=== PATIENT | male | born 1990 | race Hispanic/Latino ===

== ENCOUNTER 2018-08-16 13:10 | Emergency (ER) | payer BC ==
--- NOTE | 2018-08-16 16:36 | ER ---
Nurse's Notes [facility] Name: Caleb Flower Age: 27 yrs Sex: Male : 1990 Arrival Date: 08/16/2018 Time: 13:14 Bed 9 Private MD: Tonny Andrade Diagnosis: Pain in right shoulder Presentation: 08/16 13:27 Presenting complaint: Patient states: Reports right shoulder and back pain for 1.5 aj weeks after moving [facility]. Saw PCP for this issue last week and was given RX, reports constipation from pain medication. Transition of care: patient was not received from another setting of care. Onset of symptoms was August 08, 2018. Risk Assessment: Do you want to hurt yourself or someone else? Patient reports no desire to harm self or others. Initial Sepsis Screen: Does the patient meet any 2 criteria? No. Patient's initial sepsis screen is negative. Does the patient have a suspected source of infection? No. Patient's initial sepsis screen is negative. Care prior to arrival: None. 13:27 Method Of Arrival: Ambulatory 13:27 Acuity: GITA 4 aj Triage Assessment: 13:30 General: Appears in no apparent distress. comfortable, Behavior is calm, cooperative, aj appropriate for age. Pain: Complains of pain in right trapezius, right scapular area, right supraclavicular area, right clavicle and anterior aspect of right shoulder. Neuro: Level of Consciousness is awake, alert, obeys commands, Oriented to person, place, time, situation, Appropriate for age. Respiratory: Airway is patent Respiratory effort is even, unlabored, Respiratory pattern is regular, symmetrical. Derm: Skin is intact, is healthy with good turgor, Skin is pink, warm \T\ dry. normal. Musculoskeletal: Circulation, motion, and sensation intact. Range of motion: intact in all extremities, Swelling absent. Historical: - Allergies: 13:30 PENICILLINS; aj - Home Meds: 13:30 Baclofen Oral [Active]; diclofenac oral oral [Active]; methylprednisolone 4 mg Oral tab aj 1 tab once daily [Active]; - PMHx: 13:30 None; aj - PSHx: 13:30 None; aj - Immunization history:: Adult Immunizations up to date. - Social history:: Smoking status: Patient uses tobacco products, smokes one-half pack cigarettes per day. - Ebola Screening: : Patient negative for fever greater than or equal to 101.5 degrees Fahrenheit, and additional compatible Ebola Virus Disease symptoms Patient denies exposure to infectious person Patient denies travel to an Ebola-affected area in the 21 days before illness onset No symptoms or risks identified at this time. Screenin:45 Abuse screen: Denies threats or abuse. Denies injuries from another. Nutritional dm5 screening: No deficits noted. Tuberculosis screening: No symptoms or risk factors identified. Fall Risk None identified. Assessment: 14:45 Reassessment: Patient appears in no apparent distress at this time. No changes from dm5 previously documented assessment. Patient and/or family updated on plan of care and expected duration. Pain level reassessed. Patient is alert, oriented x 3, equal unlabored respirations, skin warm/dry/pink. General: Appears in no apparent distress. comfortable, Behavior is calm, cooperative. Pain: Complains of pain in right supraclavicular area, right shoulder Pain currently is 5 out of 10 on a pain scale. Pain began suddenly. Neuro: Level of Consciousness is awake, alert, obeys commands, Oriented to person, place, time. Respiratory: Airway is patent Respiratory effort is even, unlabored, Respiratory pattern is regular. GI: No deficits noted. : No deficits noted. EENT: No deficits noted. Derm: No deficits noted. Musculoskeletal: Reports pain in right shoulder. Vital Signs: 13:30 BP 116 / 80; Pulse 69; Resp 19; Temp 97.8; Pulse Ox 99% on R/A; Weight 120.2 kg; Height aj 5 ft. 8 in. (172.72 cm); 14:45 BP 120 / 80; Pulse 72; Resp 20; Temp 98.2; Pulse Ox 99% on R/A; dm5 13:30 Body Mass Index 40.29 (120.20 kg, 172.72 cm) aj ED Course: 13:14 Patient arrived in ED. mr 13:15 Tonny Andrade MD is Private Physician. mr 13:29 Triage completed. aj 13:30 Arm band placed on right wrist. Patient placed in waiting room. aj 14:31 Ramón Khan NP is PHCP. pm1 14:31 Amandeep Christy MD is Attending Physician. pm1 14:45 Patient has correct armband on for positive identification. dm5 14:45 No provider procedures requiring assistance completed. Patient did not have IV access dm5 during this emergency room visit. 14:59 Merline Ferreira, RN is Primary Nurse. dm5 15:58 Tonny Andrade MD is Referral Physician. pm1 15:58 Neal Lewis MD is Referral Physician. pm1 Administered Medications: No medications were administered Outcome: 16:00 Discharge ordered by MD. pm1 16:25 Patient left the ED. aj Signatures: Merline Ferreira, RN RN Judy Gardiner RN RN aj Rivera, Mary mr Marinas, Patrick, STRATEGIC PARTNERSHIP SPECIALIST STRATEGIC PARTNERSHIP SPECIALIST pm1
--- NOTE | 2018-08-16 16:36 | EDPHYS ---
Physician Documentation [facility] Name: Caleb Flower Age: 27 yrs Sex: Male : 1990 Arrival Date: 08/16/2018 Time: 13:14 Bed 9 Private MD: Tonny Andrade ED Physician Amandeep Christy HPI: 08/16 15:30 This 27 yrs old Male presents to ER via Ambulatory with complaints of Right pm1 Shoulder Pain. 16:34 The patient or guardian complains of pain, that is acute. right shoulder. Context: The pm1 problem was sustained outdoors, resulted from lifting or carrying, a heavy object, grill, The patient reports no decreased range of motion. The patient reports no obvious deformity. Onset: The symptoms/episode began/occurred 2 week(s) ago. Modifying factors: the symptoms are alleviated by nothing. The symptoms are aggravated by movement. Associated signs and symptoms: Pertinent negatives: chest pain, neck pain, Numbness in right arm tingling, Weakness in right arm. Severity of symptoms: in the emergency department the symptoms are unchanged, despite medications prescribed by PCP 4 days ago. prescribed Medrol dose Mike, baclofen, and diclofenac . The patient has experienced similar episodes in the past, a few times. The patient has been recently seen by a physician: the patient's primary care provider, 4 day(s) ago. Patient with right shoulder injury 1 year ago. Patient was lifting a grill and hurt his right shoulder. Patient is able to move his right arm and shoulder the full range of motion. Historical: - Allergies: 13:30 PENICILLINS; aj - Home Meds: 13:30 Baclofen Oral [Active]; diclofenac oral oral [Active]; methylprednisolone 4 mg Oral tab aj 1 tab once daily [Active]; - PMHx: 13:30 None; aj - PSHx: 13:30 None; aj - Immunization history:: Adult Immunizations up to date. - Social history:: Smoking status: Patient uses tobacco products, smokes one-half pack cigarettes per day. - Ebola Screening: : Patient negative for fever greater than or equal to 101.5 degrees Fahrenheit, and additional compatible Ebola Virus Disease symptoms Patient denies exposure to infectious person Patient denies travel to an Ebola-affected area in the 21 days before illness onset No symptoms or risks identified at this time. ROS: 16:34 Constitutional: Negative for fever, chills, and weight loss, Eyes: Negative for injury, pm1 pain, redness, and discharge, ENT: Negative for injury, pain, and discharge, Neck: Negative for injury, pain, and swelling, Cardiovascular: Negative for chest pain, palpitations, and edema, Respiratory: Negative for shortness of breath, cough, wheezing, and pleuritic chest pain, Abdomen/GI: Negative for abdominal pain, nausea, vomiting, diarrhea, and constipation, Back: Negative for injury and pain, : Negative for injury, bleeding, discharge, and swelling. 16:34 Skin: Negative for injury, rash, and discoloration, Neuro: Negative for headache, weakness, numbness, tingling, and seizure. 16:34 MS/extremity: Positive for pain, of the anterior aspect of right shoulder. Exam: 16:34 Constitutional: This is a well developed, well nourished patient who is awake, alert, pm1 and in no acute distress. Head/Face: Normocephalic, atraumatic. Eyes: Pupils equal round and reactive to light, extra-ocular motions intact. Lids and lashes normal. Conjunctiva and sclera are non-icteric and not injected. Cornea within normal limits. Periorbital areas with no swelling, redness, or edema. ENT: Nares patent. No nasal discharge, no septal abnormalities noted. Tympanic membranes are normal and external auditory canals are clear. Oropharynx with no redness, swelling, or masses, exudates, or evidence of obstruction, uvula midline. Mucous membranes moist. Neck: Trachea midline, no thyromegaly or masses palpated, and no cervical lymphadenopathy. Supple, full range of motion without nuchal rigidity, or vertebral point tenderness. No Meningismus. Chest/axilla: Normal chest wall appearance and motion. Nontender with no deformity. No lesions are appreciated. Cardiovascular: Regular rate and rhythm with a normal S1 and S2. No gallops, murmurs, or rubs. Normal PMI, no JVD. No pulse deficits. Respiratory: Lungs have equal breath sounds bilaterally, clear to auscultation and percussion. No rales, rhonchi or wheezes noted. No increased work of breathing, no retractions or nasal flaring. Abdomen/GI: Soft, non-tender, with normal bowel sounds. No distension or tympany. No guarding or rebound. No evidence of tenderness throughout. Back: No spinal tenderness. No costovertebral tenderness. Full range of motion. Skin: Warm, dry with normal turgor. Normal color with no rashes, no lesions, and no evidence of cellulitis. 16:34 Musculoskeletal/extremity: Extremities: grossly normal except: noted in the anterior aspect of right shoulder - supraspinatus insertion point tenderness: ROM: full active range of motion, in the right shoulder, full passive range of motion, in the right shoulder, Circulation is intact in all extremities. Sensation intact. 16:34 Neuro: Orientation: is normal, Motor: is normal, moves all fours, strength is normal, strength is 5/5 in all extremities. Vital Signs: 13:30 BP 116 / 80; Pulse 69; Resp 19; Temp 97.8; Pulse Ox 99% on R/A; Weight 120.2 kg; Height aj 5 ft. 8 in. (172.72 cm); 14:45 BP 120 / 80; Pulse 72; Resp 20; Temp 98.2; Pulse Ox 99% on R/A; dm5 13:30 Body Mass Index 40.29 (120.20 kg, 172.72 cm) aj MDM: 14:42 Patient medically screened. sahil 15:57 Data reviewed: vital signs. Data interpreted: Pulse oximetry: on room air is 99 %. pm1 Interpretation: normal. Counseling: I had a detailed discussion with the patient and/or guardian regarding: the historical points, exam findings, and any diagnostic results supporting the discharge/admit diagnosis, the need for outpatient follow up, for definitive care, a orthopedic surgeon, to return to the emergency department if symptoms worsen or persist or if there are any questions or concerns that arise at home. Administered Medications: No medications were administered Disposition: 08/16/18 16:00 Discharged to Home. Impression: Pain in right shoulder. - Condition is Stable. - Discharge Instructions: Shoulder Pain. - Prescriptions for Tylenol- Codeine #3 300-30 mg Oral Tablet - take 2 tablets by ORAL route every 6 hours As needed; 20 tablet. Cyclobenzaprine 10 mg Oral Tablet - take 1 tablet by ORAL route every 8 hours As needed; 30 tablet. - Work release form, Medication Reconciliation Form, Thank You Letter, Antibiotic Education, Prescription Opioid Use form. - Follow up: Emergency Department; When: As needed; Reason: Worsening of condition. Follow up: Tonny Andrade MD; When: 2 - 3 days; Reason: Recheck today's complaints, Continuance of care, Re-evaluation by your physician. Follow up: Neal Lewis MD; When: 2 - 3 days; Reason: Recheck today's complaints, Continuance of care, Re-evaluation by your physician. - Problem is new. - Symptoms have improved. Addendum: 08/19/2018 06:48 Co-signature as Attending Physician, Amandeep Christy MD I agree with the assessment and c caldwell plan of care. Signatures: Dispatcher [employer] EDMS Judy Good, RN Amandeep Escalante MD MD cha Marinas, Patrick, [employer] INFANT CHILDCARE PROVIDER pm1 Corrections: (The following items were deleted from the chart) 08/16 16:25 16:00 08/16/2018 16:00 Discharged to Home. Impression: Pain in right shoulder. aj Condition is Stable. Forms are Medication Reconciliation Form, Thank You Letter, Antibiotic Education, Prescription Opioid Use. Follow up: Emergency Department; When: As needed; Reason: Worsening of condition. Follow up: Tonny Andrade; When: 2 - 3 days; Reason: Recheck today's complaints, Continuance of care, Re-evaluation by your physician. Follow up: Neal Lewis; When: 2 - 3 days; Reason: Recheck today's complaints, Continuance of care, Re-evaluation by your physician. Problem is new. Symptoms have improved. pm1
== END 2018-08-16 16:25 | disposition home or self-care (01) ==
LOC: ER 13:10
DX: M25.511 Pain in right shoulder (principal); F17.210 Nicotine dependence, cigarettes, uncomplicated; Z88.0 Allergy status to penicillin
CPT/HCPCS: 99281

== ENCOUNTER 2018-10-20 13:59 | Emergency (ER) | payer BC ==
[2018-10-20] MEDS ORDERED: CYCLOBENZAPRINE 10 MG TAB ONE (15:16)
--- NOTE | 2018-10-20 16:02 | EDPHYS ---
Physician Documentation [facility] Name: Caleb Flower Age: 28 yrs Sex: Male : 1990 Arrival Date: 10/20/2018 Time: 14:03 Bed 20 Private MD: Tonny Andrade ED Physician Manjeet Zhong HPI: 10/20 15:21 This 28 yrs old Male presents to ER via Ambulatory with complaints of Flu kb Symptoms. 15:20 Modifying factors: The symptoms are alleviated by nothing, the symptoms are aggravated kb by nothing. Associated signs and symptoms: Pertinent positives: fever, rhinorrhea, sore throat, Pertinent negatives: chest pain, diarrhea, ear ache, nausea, vomiting. The patient has not experienced similar symptoms in the past. The patient has not recently seen a physician. 15:21 The patient or guardian reports cough, that is intermittent, described as moderate, flu kb symptoms. Onset: The symptoms/episode began/occurred 4 day(s) ago. Severity of symptoms: At their worst the symptoms were mild, moderate, in the emergency department the symptoms are unchanged. Historical: - Allergies: 14:12 PENICILLINS; aj1 - Home Meds: 14:12 None [Active]; aj1 - PMHx: 14:12 chronic back issues; aj1 - Immunization history:: Flu vaccine is not up to date. - Social history:: Smoking status: Patient uses tobacco products, smokes one-half pack cigarettes per day. - Ebola Screening: : Patient denies travel to an Ebola-affected area in the 21 days before illness onset. ROS: 15:18 Cardiovascular: Negative for chest pain, palpitations, and edema, Abdomen/GI: Negative kb for abdominal pain, nausea, vomiting, diarrhea, and constipation, MS/Extremity: Negative for injury and deformity, Skin: Negative for injury, rash, and discoloration. 15:18 Constitutional: Positive for body aches, chills, fatigue, fever, malaise, Negative for poor PO intake, weight loss. 15:18 ENT: Positive for rhinorrhea, sinus congestion. 15:18 Respiratory: Positive for cough, Negative for dyspnea on exertion, hemoptysis, orthopnea, pleurisy, shortness of breath, wheezing. 15:18 Back: Positive for pain at rest, pain with movement, of the low back area. Exam: 15:18 Constitutional: This is a well developed, well nourished patient who is awake, alert, kb and in no acute distress. Head/Face: Normocephalic, atraumatic. ENT: Nares patent. No nasal discharge, no septal abnormalities noted. Tympanic membranes are normal and external auditory canals are clear. Oropharynx with no redness, swelling, or masses, exudates, or evidence of obstruction, uvula midline. Mucous membranes moist. Neck: Trachea midline, no thyromegaly or masses palpated, and no cervical lymphadenopathy. Supple, full range of motion without nuchal rigidity, or vertebral point tenderness. No Meningismus. Chest/axilla: Normal chest wall appearance and motion. Nontender with no deformity. No lesions are appreciated. Cardiovascular: Regular rate and rhythm with a normal S1 and S2. No gallops, murmurs, or rubs. Normal PMI, no JVD. No pulse deficits. Respiratory: Lungs have equal breath sounds bilaterally, clear to auscultation and percussion. No rales, rhonchi or wheezes noted. No increased work of breathing, no retractions or nasal flaring. Abdomen/GI: Soft, non-tender, with normal bowel sounds. No distension or tympany. No guarding or rebound. No evidence of tenderness throughout. Back: No spinal tenderness. No costovertebral tenderness. Full range of motion. Skin: Warm, dry with normal turgor. Normal color with no rashes, no lesions, and no evidence of cellulitis. MS/ Extremity: Pulses equal, no cyanosis. Neurovascular intact. Full, normal range of motion. Neuro: Awake and alert, GCS 15, oriented to person, place, time, and situation. Cranial nerves II-XII grossly intact. Motor strength 5/5 in all extremities. Sensory grossly intact. Cerebellar exam normal. Normal gait. Vital Signs: 14:12 BP 142 / 89; Pulse 91; Resp 18; Temp 98.3; Pulse Ox 97% on R/A; Weight 117.93 kg (R); aj1 Height 5 ft. 8 in. (172.72 cm) (R); Pain 5/10; 15:55 BP 138 / 84; Pulse 87; Resp 18; Pulse Ox 99% on R/A; Pain 3/10; em 14:12 Body Mass Index 39.53 (117.93 kg, 172.72 cm) aj1 MDM: 14:18 Patient medically screened. kb 15:18 Data reviewed: vital signs, nurses notes. Data interpreted: Pulse oximetry: on room air kb is 97 %. Interpretation: normal. 15:53 Counseling: I had a detailed discussion with the patient and/or guardian regarding: the kb historical points, exam findings, and any diagnostic results supporting the discharge/admit diagnosis, lab results, the need for outpatient follow up, a family practitioner, to return to the emergency department if symptoms worsen or persist or if there are any questions or concerns that arise at home. 10/20 14:23 Order name: Flu; Complete Time: 15:51 kb 10/20 14:23 Order name: Strep; Complete Time: 15:51 kb 10/20 15:55 Order name: Throat Culture EDND Administered Medications: 15:07 Drug: Flexeril 10 mg Route: PO; em 16:33 Follow up: Response: No adverse reaction; Pain is decreased em Disposition: 10/20/18 16:01 Discharged to Home. Impression: Acute sinusitis, Muscle spasm of back. - Condition is Stable. - Discharge Instructions: Sinusitis, Adult, [id number], Muscle Cramps and Spasms, [id number]. - Prescriptions for orphenadrine citrate 100 mg Oral Tablet Sustained Release - take 1 tablet by ORAL route 2 times per day As needed; 20 tablet. - Medication Reconciliation Form, Thank You Letter, Antibiotic Education, Prescription Opioid Use, Work release form form. - Follow up: Emergency Department; When: As needed; Reason: Worsening of condition. Follow up: Private Physician; When: 2 - 3 days; Reason: Recheck today's complaints, Continuance of care, Re-evaluation by your physician. Addendum: 10/22/2018 10:27 Co-signature as Attending Physician, Manjeet Zhong MD. g s Signatures: Dispatcher [employer] EDRupa Cano, KERI GARCIAP-Gissell Vera RN RN aj1 Kalyan Felix, MAT WORKER MAT WORKER em Manjeet Zhong MD MD gs Corrections: (The following items were deleted from the chart) 10/20 16:35 16:01 10/20/2018 16:01 Discharged to Home. Impression: Acute sinusitis; Muscle spasm of em back. Condition is Stable. Forms are Medication Reconciliation Form, Thank You Letter, Antibiotic Education, Prescription Opioid Use. Follow up: Emergency Department; When: As needed; Reason: Worsening of condition. Follow up: Private Physician; When: 2 - 3 days; Reason: Recheck today's complaints, Continuance of care, Re-evaluation by your physician. kb
--- NOTE | 2018-10-20 16:02 | ER ---
Nurse's Notes [facility] Name: Caleb Flower Age: 28 yrs Sex: Male : 1990 Arrival Date: 10/20/2018 Time: 14:03 Bed 20 Private MD: Tonny Andrade Diagnosis: Acute sinusitis;Muscle spasm of back Presentation: 10/20 14:09 Presenting complaint: Patient states: Runny nose, cough, body aches for the past 3 aj1 days. Reports fever of 99 at home. Patient states that he also having muscle spasms in his lower back. Transition of care: patient was not received from another setting of care. Onset of symptoms was October 17, 2018. Risk Assessment: Do you want to hurt yourself or someone else? Patient reports no desire to harm self or others. Initial Sepsis Screen: Does the patient meet any 2 criteria? No. Patient's initial sepsis screen is negative. Does the patient have a suspected source of infection? Yes: Productive cough/pneumonia. Care prior to arrival: None. 14:09 Method Of Arrival: Ambulatory aj 14:09 Acuity: GITA 4 aj1 Triage Assessment: 14:12 General: Appears in no apparent distress. comfortable, Behavior is calm, cooperative, aj1 appropriate for age. Pain: Complains of pain in back Pain currently is 5 out of 10 on a pain scale. Neuro: Level of Consciousness is awake, alert, obeys commands. Cardiovascular: Patient's skin is warm and dry. Respiratory: Airway is patent Respiratory effort is even, unlabored, Respiratory pattern is regular, symmetrical. Historical: - Allergies: 14:12 PENICILLINS; aj1 - Home Meds: 14:12 None [Active]; aj1 - PMHx: 14:12 chronic back issues; aj1 - Immunization history:: Flu vaccine is not up to date. - Social history:: Smoking status: Patient uses tobacco products, smokes one-half pack cigarettes per day. - Ebola Screening: : Patient denies travel to an Ebola-affected area in the 21 days before illness onset. Screenin:34 Abuse screen: Denies threats or abuse. Nutritional screening: No deficits noted. em Tuberculosis screening: No symptoms or risk factors identified. Fall Risk None identified. Assessment: 14:34 General: Appears in no apparent distress. uncomfortable, Behavior is calm, cooperative, em Reports chills for fever for 2-3 days, feeling ill for. Pain: Complains of pain in low back area. Neuro: Level of Consciousness is awake, alert, obeys commands, Oriented to person, place, time, situation. Cardiovascular: Patient's skin is warm and dry. Respiratory: Reports cough that is Airway is patent Respiratory effort is even, unlabored, Respiratory pattern is regular, symmetrical, Breath sounds are clear bilaterally. GI: Reports nausea. EENT: Nares are clear Oral mucosa is moist. Throat is clear is pink. Derm: Skin is intact, is healthy with good turgor, Skin is pink, warm \T\ dry. Musculoskeletal: Range of motion: intact in all extremities, Reports muscle spasms in back. 14:40 General: The previous assessment is accurate, call light remains within reach. . ss 15:55 Reassessment: Patient appears in no apparent distress at this time. Patient and/or em family updated on plan of care and expected duration. Pain level reassessed. Patient is alert, oriented x 3, equal unlabored respirations, skin warm/dry/pink. 16:34 Reassessment: Patient appears in no apparent distress at this time. Patient and/or em family updated on plan of care and expected duration. Pain level reassessed. Patient is alert, oriented x 3, equal unlabored respirations, skin warm/dry/pink. back spasms have improved Patient states feeling better. Patient states symptoms have improved. Vital Signs: 14:12 BP 142 / 89; Pulse 91; Resp 18; Temp 98.3; Pulse Ox 97% on R/A; Weight 117.93 kg (R); aj1 Height 5 ft. 8 in. (172.72 cm) (R); Pain 5/10; 15:55 BP 138 / 84; Pulse 87; Resp 18; Pulse Ox 99% on R/A; Pain 3/10; em 14:12 Body Mass Index 39.53 (117.93 kg, 172.72 cm) aj1 ED Course: 14:03 Patient arrived in ED. sb2 14:03 Tonny Andrade MD is Private Physician. sb2 14:11 Triage completed. aj1 14:12 [facility]C [facility] kb 14:12 Manjeet Zhong MD is Attending Physician. kb 14:12 Arm band placed on Patient placed in an exam room. aj1 14:34 Kalyan Felix LVN is Primary Nurse. em 14:34 Patient has correct armband on for positive identification. Placed in gown. Bed in low em position. Call light in reach. Adult w/ patient. Pulse ox on. NIBP on. 16:34 No provider procedures requiring assistance completed. Patient did not have IV access em during this emergency room visit. Administered Medications: 15:07 Drug: Flexeril 10 mg Route: PO; em 16:33 Follow up: Response: No adverse reaction; Pain is decreased em Outcome: 16:01 Discharge ordered by . kb 16:34 Discharged to home ambulatory, with family. em 16:34 Condition: good 16:34 Discharge instructions given to patient, family, Instructed on discharge instructions, follow up and referral plans. medication usage, Demonstrated understanding of instructions, follow-up care, medications, Prescriptions given X 1. 16:35 Patient left the ED. em Signatures: Rupa Serna, POULTRY PROCESSING SUPERVISOR-C POULTRY PROCESSING SUPERVISOR-Gissell Vera RN RN aj1 Kalyan Felix LVN LVN em Lindsey Becerra RN RN ss Jazz Meza sb2
== END 2018-10-20 16:35 | disposition home or self-care (01) ==
LOC: ER 13:59
DX: J01.90 Acute sinusitis, unspecified (principal); M62.830 Muscle spasm of back; F17.210 Nicotine dependence, cigarettes, uncomplicated; Z88.0 Allergy status to penicillin
CPT/HCPCS: 87070; 87081; 87804; 99283

== ENCOUNTER 2019-07-19 19:27 | Emergency (ER) | payer BC ==
[2019-07-19] MEDS ORDERED: LIDOCAINE 1% W/EPI 1:100,000 MDV 20 ML VIAL ONE (20:10)
[2019-07-19] MEDS ORDERED: HYDROCODONE/APAP 5/325 MG TAB ONE (20:20)
[2019-07-19] MEDS ORDERED: SMZ./TMP. 800/160 MG TABLET ONE (20:20)
--- NOTE | 2019-07-19 20:42 | EDPHYS ---
Physician Documentation [facility] Name: Caleb Flower Age: 28 yrs Sex: Male : 1990 Arrival Date: 07/19/2019 Time: 19:28 Bed 30 Private MD: Tonny Andrade ED Physician Manjeet Zhong HPI: 07/19 20:29 This 28 yrs old Male presents to ER via Ambulatory with complaints of gs Cyst/lump under arm. 20:29 The patient presents with an abscess of the right axilla. Description: The affected gs area is small, fluctuant. Onset: The symptoms/episode began/occurred 2 day(s) ago, and became persistent. Possible cause(s): unknown. Associated signs and symptoms: Pertinent negatives: fever. Modifying factors: the symptoms are aggravated by touching. Severity of symptoms: At their worst the symptoms were severe, in the emergency department the symptoms are unchanged. The patient has experienced a previous episode. Historical: - Allergies: 19:32 PENICILLINS; la1 - PMHx: 19:32 chronic back issues; la1 - Immunization history:: Adult Immunizations up to date. - Social history:: Smoking status: Patient/guardian denies using tobacco. - Ebola Screening: : No symptoms or risks identified at this time. ROS: 20:29 All other systems are negative. gs Exam: 20:29 Head/Face: Normocephalic, atraumatic. Eyes: Pupils equal round and reactive to light, gs extra-ocular motions intact. Lids and lashes normal. Conjunctiva and sclera are non-icteric and not injected. Cornea within normal limits. Periorbital areas with no swelling, redness, or edema. ENT: Nares patent. No nasal discharge, no septal abnormalities noted. Tympanic membranes are normal and external auditory canals are clear. Oropharynx with no redness, swelling, or masses, exudates, or evidence of obstruction, uvula midline. Mucous membranes moist. Neck: Trachea midline, no thyromegaly or masses palpated, and no cervical lymphadenopathy. Supple, full range of motion without nuchal rigidity, or vertebral point tenderness. No Meningismus. Cardiovascular: Regular rate and rhythm with a normal S1 and S2. No gallops, murmurs, or rubs. Normal PMI, no JVD. No pulse deficits. Respiratory: Lungs have equal breath sounds bilaterally, clear to auscultation and percussion. No rales, rhonchi or wheezes noted. No increased work of breathing, no retractions or nasal flaring. Abdomen/GI: Soft, non-tender, with normal bowel sounds. No distension or tympany. No guarding or rebound. No evidence of tenderness throughout. Back: No spinal tenderness. No costovertebral tenderness. Full range of motion. Skin: Warm, dry with normal turgor. Normal color with no rashes, no lesions, and no evidence of cellulitis. 20:29 Constitutional: The patient appears alert, uncomfortable. 20:29 Chest/axilla: Axilla: abscess, that is small, of the right axilla, with pointing, with tenderness. Vital Signs: 19:33 BP 134 / 97; Pulse 97; Resp 16; Temp 97.4; Pulse Ox 100% on R/A; Weight 122.47 kg; la1 Height 5 ft. 8 in. (172.72 cm); 20:43 BP 126 / 78; Pulse 84; Resp 18; Pulse Ox 98% on R/A; wh 19:33 Body Mass Index 41.05 (122.47 kg, 172.72 cm) la1 Procedures: 20:29 I \T\ D: Incision and drainage was performed for an abscess of the right axilla. Prepped gs with Betadine, Anesthetized with 5 ml's 1% Lidocaine w/ Epi. Incised with 18 tomy scissors. Drained small amount purulent fluid. serosanguinous fluid. Dressing: sterile 4x4 gauze, the patient tolerated the procedure well. MDM: 19:42 Patient medically screened. gs 20:29 Differential diagnosis: abscess. Data reviewed: vital signs, nurses notes. gs 20:29 Response to treatment: the patient's symptoms have markedly improved after treatment, gs and as a result, I will discharge patient. Administered Medications: 20:15 Drug: Lidocaine-Epinephrine -1%: (1:100,000) 5 ml {Note: Administered by Farheen GONZÁLES} wh Volume: 20 ml; Route: Infiltration; 20:55 Follow up: Response: No adverse reaction; RASS: Alert and Calm (0) wh 20:25 Drug: Bactrim (160 mg-800 mg (DS) 2 tablet Route: PO; wh 20:54 Follow up: Response: No adverse reaction; RASS: Alert and Calm (0) 20:25 Drug: [place] 5 mg-325 mg 1 tabs Route: PO; 20:54 Follow up: Response: No adverse reaction; RASS: Alert and Calm (0) Disposition: 07/19/19 20:42 Discharged to Home. Impression: Cutaneous abscess of right axilla. - Condition is Stable. - Discharge Instructions: Skin Abscess. - Prescriptions for Tylenol- Codeine #4 300-60 mg Oral Tablet - take 1 tablet by ORAL route every 6 hours As needed; 6 tablet. Bactrim DS 800- 160 mg Oral Tablet - take 2 tablet by ORAL route every 12 hours for 7 days; 28 tablet. - Medication Reconciliation Form, Thank You Letter, Antibiotic Education, Prescription Opioid Use form. - Follow up: Private Physician; When: 1 - 2 days; Reason: Re-evaluation by your physician. Signatures: Ezio Dumont RN RN Aicha Francis Manjeet Zhong MD MD Corrections: (The following items were deleted from the chart) 20:56 20:42 07/19/2019 20:42 Discharged to Home. Impression: Cutaneous abscess of right axilla. Condition is Stable. Forms are Medication Reconciliation Form, Thank You Letter, Antibiotic Education, Prescription Opioid Use. Follow up: Private Physician; When: 1 - 2 days; Reason: Re-evaluation by your physician. gs
--- NOTE | 2019-07-19 20:42 | ER ---
Nurse's Notes [facility] Name: Caleb Flower Age: 28 yrs Sex: Male : 1990 Arrival Date: 07/19/2019 Time: 19:28 Bed 30 Private MD: oTnny Andrade Diagnosis: Cutaneous abscess of right axilla Presentation: 07/19 19:32 Presenting complaint: Patient states: I think I have an abscess or something under my la1 right arm. I saw my doctor about a month ago and he had put me on some creams and an antibiotic but I never took the abx because it was getting better already. Transition of care: patient was not received from another setting of care. Onset of symptoms was July 19, 2019. Risk Assessment: Do you want to hurt yourself or someone else? Patient reports no desire to harm self or others. Initial Sepsis Screen: Does the patient meet any 2 criteria? No. Patient's initial sepsis screen is negative. Does the patient have a suspected source of infection? No. Patient's initial sepsis screen is negative. Care prior to arrival: None. 19:32 Method Of Arrival: Ambulatory la1 19:32 Acuity: GITA 4 la1 Triage Assessment: 20:00 General: Behavior is calm, cooperative, appropriate for age. wh Historical: - Allergies: 19:32 PENICILLINS; la1 - PMHx: 19:32 chronic back issues; la1 - Immunization history:: Adult Immunizations up to date. - Social history:: Smoking status: Patient/guardian denies using tobacco. - Ebola Screening: : No symptoms or risks identified at this time. Screenin:00 Abuse screen: Denies threats or abuse. Denies injuries from another. Nutritional wh screening: No deficits noted. Tuberculosis screening: No symptoms or risk factors identified. Fall Risk None identified. Assessment: 20:00 General: Appears in no apparent distress. Pain: Complains of pain in right axilla Pain wh does not radiate. Pain currently is 5 out of 10 on a pain scale. Quality of pain is described as aching. Neuro: Level of Consciousness is awake, alert, obeys commands. Cardiovascular: Capillary refill < 3 seconds. Respiratory: Airway is patent Respiratory effort is even, unlabored, Respiratory pattern is regular, symmetrical. GI: Abdomen is flat, non-distended. : No signs and/or symptoms were reported regarding the genitourinary system. EENT: No signs and/or symptoms were reported regarding the EENT system. Derm: Abscess located on right axilla. Musculoskeletal: Circulation, motion, and sensation intact. 20:38 Reassessment: Patient appears in no apparent distress at this time. No changes from previously documented assessment. Patient and/or family updated on plan of care and expected duration. Pain level reassessed. Patient is alert, oriented x 3, equal unlabored respirations, skin warm/dry/pink. Vital Signs: 19:33 BP 134 / 97; Pulse 97; Resp 16; Temp 97.4; Pulse Ox 100% on R/A; Weight 122.47 kg; la1 Height 5 ft. 8 in. (172.72 cm); 20:43 BP 126 / 78; Pulse 84; Resp 18; Pulse Ox 98% on R/A; wh 19:33 Body Mass Index 41.05 (122.47 kg, 172.72 cm) la1 ED Course: 19:28 Patient arrived in ED. mr 19:28 Tonny Andrade MD is Private Physician. mr 19:31 Arm band placed on left wrist. la1 19:33 Triage completed. la1 19:35 Manjeet Zhong MD is Attending Physician. gs 19:37 Aicha Miller is Primary Nurse. 20:00 Patient has correct armband on for positive identification. Bed in low position. Call light in reach. Side rails up X 1. Pulse ox on. NIBP on. 20:15 Assist provider with I \T\ D: of an abscess on right axilla Set up I\T\D tray. Performed by Manjeet Zhong MD Dressing with 4X4s, tape Patient tolerated well. 20:53 Patient did not have IV access during this emergency room visit. Administered Medications: 20:15 Drug: Lidocaine-Epinephrine -1%: (1:100,000) 5 ml {Note: Administered by Farheen ROGEL.} Volume: 20 ml; Route: Infiltration; 20:55 Follow up: Response: No adverse reaction; RASS: Alert and Calm (0) 20:25 Drug: Bactrim (160 mg-800 mg (DS) 2 tablet Route: PO; 20:54 Follow up: Response: No adverse reaction; RASS: Alert and Calm (0) 20:25 Drug: [place] 5 mg-325 mg 1 tabs Route: PO; 20:54 Follow up: Response: No adverse reaction; RASS: Alert and Calm (0) Outcome: 20:42 Discharge ordered by . 20:53 Discharged to home ambulatory, with family. 20:53 Condition: good 20:53 Discharge instructions given to patient, family, Instructed on discharge instructions, follow up and referral plans. no drinking with medication, no driving heavy equipment, medication usage, wound care, POC Abscess Demonstrated understanding of instructions, follow-up care, medications, wound care, POC Prescriptions given X 2. 20:56 Patient left the ED. Signatures: Annia Alcaraz Lee, RN RN Aicha Francis Manjeet Zhong MD MD
[2019-07-19 21:12] VITALS: TEMP 97.4
[2019-07-19 21:14] VITALS: BP 126/78; O2SAT 98
== END 2019-07-19 20:56 | disposition home or self-care (01) ==
LOC: ER 19:27
PROC: 0J9D0ZZ Drainage of Right Upper Arm Subcutaneous Tissue and Fascia, Open Approach (ICD-10-PCS; principal; 2019-07-19)
DX: L02.411 Cutaneous abscess of right axilla (principal); Z88.0 Allergy status to penicillin
CPT/HCPCS: 99284

== ENCOUNTER 2019-12-18 17:55 | Emergency (ER) | payer BC ==
--- OUTSIDE RECORDS SUMMARY | 2019-12-18 17:57 | XMS REPORT ---
:1990 [facility] [address] [place] [address] Dr. Haas [address] [place] [id number] Care Team Providers Name Role Phone Unavailable Unavailable Unavailable Problems This patient has no known problems. Allergies, Adverse Reactions, Alerts This patient has no known allergies or adverse reactions. Medications This patient has no known medications. Encounters Start End Encounter Admission Attending Care Care Encounter Date/Time Date/Time Type Type Clinicians Facility Department ID 2019-09-17 2019-09-17 Emergency E [id number] 11:42:00 11:42:00
--- NOTE | 2019-12-18 20:05 | EDPHYS ---
Physician Documentation [facility] Name: Caleb Flower Age: 29 yrs Sex: Male : 1990 Arrival Date: 12/18/2019 Time: 17:58 Bed 5 Private MD: ED Physician Amandeep Christy HPI: 12/17 19:29 This 29 yrs old Male presents to ER via Ambulatory with complaints of Sinus sahil Congestion, Sore Throat, Cough. 19:29 The patient or guardian reports cough. Onset: The symptoms/episode began/occurred 2 sahil day(s) ago. 19:29 The patient presents to the emergency department with nausea, that is mild, vomiting, sahil that is continuous. Possible causes: unknown. The symptoms are aggravated by nothing. Severity of symptoms: At their worst the symptoms were mild, in the emergency department the symptoms are unchanged. Associated signs and symptoms: The patient has no apparent associated signs or symptoms. Severity of symptoms: At their worst the symptoms were mild in the emergency department the symptoms are unchanged. Historical: - Allergies: 18:39 No Known Allergies; jl7 - Home Meds: 18:39 None [Active]; jl7 - PMHx: 18:39 chronic back issues; jl7 - PSHx: 18:39 None; jl7 - Immunization history:: Adult Immunizations not up to date. - Social history:: Smoking status: Patient reports the use of cigarette tobacco products, 2 cigarettes/day. - Family history:: not pertinent. ROS: 19:29 Constitutional: Negative for fever, chills, and weight loss, Eyes: Negative for injury, sahil pain, redness, and discharge, Neck: Negative for injury, pain, and swelling, Cardiovascular: Negative for chest pain, palpitations, and edema, Respiratory: Negative for shortness of breath, cough, wheezing, and pleuritic chest pain, Abdomen/GI: Negative for abdominal pain, nausea, vomiting, diarrhea, and constipation, Back: Negative for injury and pain, : Negative for injury, bleeding, discharge, and swelling, MS/Extremity: Negative for injury and deformity, Skin: Negative for injury, rash, and discoloration, Neuro: Negative for headache, weakness, numbness, tingling, and seizure. 19:29 ENT: Positive for difficulty swallowing, sore throat. Exam: 19:29 Constitutional: This is a well developed, well nourished patient who is awake, alert, sahil and in no acute distress. Head/Face: Normocephalic, atraumatic. Eyes: Pupils equal round and reactive to light, extra-ocular motions intact. Lids and lashes normal. Conjunctiva and sclera are non-icteric and not injected. Cornea within normal limits. Periorbital areas with no swelling, redness, or edema. Neck: Trachea midline, no thyromegaly or masses palpated, and no cervical lymphadenopathy. Supple, full range of motion without nuchal rigidity, or vertebral point tenderness. No Meningismus. Chest/axilla: Normal chest wall appearance and motion. Nontender with no deformity. No lesions are appreciated. Cardiovascular: Regular rate and rhythm with a normal S1 and S2. No gallops, murmurs, or rubs. Normal PMI, no JVD. No pulse deficits. Respiratory: Lungs have equal breath sounds bilaterally, clear to auscultation and percussion. No rales, rhonchi or wheezes noted. No increased work of breathing, no retractions or nasal flaring. Abdomen/GI: Soft, non-tender, with normal bowel sounds. No distension or tympany. No guarding or rebound. No evidence of tenderness throughout. Back: No spinal tenderness. No costovertebral tenderness. Full range of motion. Male : Normal genitalia with no discharge or lesions. Skin: Warm, dry with normal turgor. Normal color with no rashes, no lesions, and no evidence of cellulitis. MS/ Extremity: Pulses equal, no cyanosis. Neurovascular intact. Full, normal range of motion. Neuro: Awake and alert, GCS 15, oriented to person, place, time, and situation. Cranial nerves II-XII grossly intact. Motor strength 5/5 in all extremities. Sensory grossly intact. Cerebellar exam normal. Normal gait. Psych: Awake, alert, with orientation to person, place and time. Behavior, mood, and affect are within normal limits. 19:29 ENT: Posterior pharynx: Airway: normal, no evidence of obstruction, Tonsils: are normal in appearance, Uvula: normal, midline, non-edematous, no erythema, swelling, that is mild, erythema, that is mild, exudate, is not appreciated. 19:29 Abdomen/GI: Inspection: abdomen appears normal, Bowel sounds: normal, Palpation: abdomen is soft and non-tender, Liver: no appreciated palpable abnormalities, Hernia: not appreciated. Vital Signs: 18:35 BP 145 / 96; Pulse 103; Resp 19; Temp 98.2; Pulse Ox 98% ; Weight 127.01 kg; Height 5 jl7 ft. 9 in. (175.26 cm); Pain 7/10; 18:35 Body Mass Index 41.35 (127.01 kg, 175.26 cm) 7 MDM: 19:[address] [facility] 19:31 Data reviewed: vital signs, nurses notes, lab test result(s), Flu:. [facility] 12/17 19:29 Order name: Flu; Complete Time: 21:04 [facility] 12/17 19:29 Order name: Strep; Complete Time: 21: [facility] 12/17 20:48 Order name: Throat Culture EDMS Administered Medications: No medications were administered Disposition: 12/18/19 20:04 Discharged to Home. Impression: Diarrhea, unspecified, Acute pharyngitis, Cough. - Condition is Fair. - Discharge Instructions: Food Choices to Help Relieve Diarrhea, Adult, Diarrhea, Adult, Pharyngitis, [id number], Cough, Adult, Ulpz-oh-Isey, Cough, Adult. - Prescriptions for Zithromax Z- Mike 250 mg Oral Tablet - take 1 tablet by ORAL route as directed for 5 days Day 1 - take two (2) tablets one time. Day 2, 3, 4 , 5 take one (1) tablet once daily.; 6 tablet. - Medication Reconciliation Form, Thank You Letter, Antibiotic Education, Prescription Opioid Use, Work release form form. - Follow up: Private Physician; When: 2 - 3 days; Reason: Recheck today's complaints, Continuance of care, Re-evaluation by your physician. - Problem is new. - Symptoms have improved. Signatures: Dispatcher [employer] EDMS Amandeep Christy MD MD cha Leal, Jahala RN RN jl7 Ambar Hermosillo RN RN oseas Corrections: (The following items were deleted from the chart) 21:38 20:04 12/18/2019 20:04 Discharged to Home. Impression: Diarrhea, unspecified; Acute ah pharyngitis; Cough. Condition is Fair. Discharge Instructions: Food Choices to Help Relieve Diarrhea, Adult, Diarrhea, Adult, Pharyngitis, Akmi-qe-Bkun, Cough, Adult, Ixme-hi-Gcly, Cough, Adult. Prescriptions for Zithromax Z-Mike 250 mg Oral Tablet - take 1 tablet by ORAL route as directed for 5 days Day 1 - take two (2) tablets one time. Day 2, 3, 4 , 5 take one (1) tablet once daily.; 6 tablet. and Forms are Medication Reconciliation Form, Thank You Letter, Antibiotic Education, Prescription Opioid Use. Follow up: Private Physician; When: 2 - 3 days; Reason: Recheck today's complaints, Continuance of care, Re-evaluation by your physician. Problem is new. Symptoms have improved. sahil
--- NOTE | 2019-12-18 20:05 | ER ---
Nurse's Notes [facility] Name: Caleb Flower Age: 29 yrs Sex: Male : 1990 Arrival Date: 12/18/2019 Time: 17:58 Bed 5 Private MD: Diagnosis: Diarrhea, unspecified;Acute pharyngitis;Cough Presentation: 12/17 18:35 Chief complaint: Patient states: [place] and diarrhea started a week ago and now I have jl7 congestion, runny nose, and productive cough since Sunday, denies fever. Coronavirus screen: The patient has NOT traveled to a country currently being monitored by the [facility] within the last 14 days. Proceed with normal triage procedures. The patient has NOT had contact with any known and/or suspected case of coronavirus. Proceed with normal triage procedures. Ebola Screen: No symptoms or risks identified at this time. Initial Sepsis Screen: Does the patient meet any 2 criteria? No. Patient's initial sepsis screen is negative. Does the patient have a suspected source of infection? No. Patient's initial sepsis screen is negative. Risk Assessment: Do you want to hurt yourself or someone else? Patient reports no desire to harm self or others. Onset of symptoms was December 15, 2019. 18:35 Method Of Arrival: Ambulatory jl7 18:35 Acuity: GITA 3 jl7 Triage Assessment: 18:39 General: Appears in no apparent distress. uncomfortable, Behavior is calm, cooperative, jl7 appropriate for age. Pain: Complains of pain in sore throat Pain currently is 7 out of 10 on a pain scale. EENT: Reports nasal congestion. Historical: - Allergies: 18:39 No Known Allergies; jl7 - Home Meds: 18:39 None [Active]; jl7 - PMHx: 18:39 chronic back issues; jl7 - PSHx: 18:39 None; jl7 - Immunization history:: Adult Immunizations not up to date. - Social history:: Smoking status: Patient reports the use of cigarette tobacco products, 2 cigarettes/day. - Family history:: not pertinent. Screenin:24 Abuse screen: Denies threats or abuse. Nutritional screening: No deficits noted. Tuberculosis screening: No symptoms or risk factors identified. Fall Risk None identified. Assessment: 20:21 General: Appears in no apparent distress. Behavior is calm. Pain: Denies pain. Neuro: Level of Consciousness is awake, alert, Oriented to person, place, time. Cardiovascular: Denies chest pain, Heart tones S1 S2 present Capillary refill < 3 seconds Patient's skin is warm and dry. Respiratory: Airway is patent Respiratory effort is even, unlabored, Respiratory pattern is regular, symmetrical. GI: Reports diarrhea, a few days ago Patient currently denies nausea, vomiting. : No signs and/or symptoms were reported regarding the genitourinary system. EENT: Nares are clear Throat with gag reflex present. 20:24 Respiratory: Breath sounds are clear. 21:00 Reassessment: Patient appears in no apparent distress at this time. Patient and/or ah family updated on plan of care and expected duration. Pain level reassessed. Patient is alert, oriented x 3, equal unlabored respirations, skin warm/dry/pink. Pt resting with eyes closed and resp even and unlabored. at bedside. Vital Signs: 18:35 BP 145 / 96; Pulse 103; Resp 19; Temp 98.2; Pulse Ox 98% ; Weight 127.01 kg; Height 5 jl7 ft. 9 in. (175.26 cm); Pain 7/10; 18:35 Body Mass Index 41.35 (127.01 kg, 175.26 cm) 7 ED Course: 17:58 Patient arrived in ED. [facility] 18:38 Triage completed. [facility] 18:39 Arm band placed on right wrist. Patient placed in waiting room, Patient notified of 7 wait time. 19:08 Amandeep Christy MD is Attending Physician. [facility] 19:28 Ambar Hermosillo, RN is Primary Nurse. 20:24 Patient has correct armband on for positive identification. Call light in reach. 21:00 No provider procedures requiring assistance completed. Patient did not have IV access during this emergency room visit. Administered Medications: No medications were administered Outcome: 20:04 Discharge ordered by . [facility] 21:15 Discharged to home ambulatory. 21:15 Condition: stable 21:15 Discharge instructions given to patient, family, Instructed on discharge instructions, follow up and referral plans. medication usage, Demonstrated understanding of instructions, Prescriptions given X 1. 21:38 Patient left the ED. Signatures: Amandeep Christy MD MD cha Leal, Jahala, RN RN [facility] Mellissa Khan ag5 Hermosillo, Ambar, RN RN ah
[2019-12-18 21:56] VITALS: BP 145/96; TEMP 98.2; O2SAT 98
== END 2019-12-18 21:38 | disposition home or self-care (01) ==
LOC: ER 17:55
DX: R05 Cough (principal); R19.7 Diarrhea, unspecified; F17.210 Nicotine dependence, cigarettes, uncomplicated
CPT/HCPCS: 87070; 87081; 87804; 99282